=== PATIENT | female | born 1940 | race African-American/Black ===

== ENCOUNTER 2023-11-11 11:52 | Emergency (ER) | payer OTHER, MEDICAID ==
[~2023-11-11] VITALS: Ht 152.4 cm; Wt 60.0 kg
[2023-11-11] MEDS: ALBUTEROL (0.083%) 2.5MG/3ML NEB HHN SCH (12:22)
[2023-11-11 12:23] VITALS: PULSE 100; RESP 20; O2SAT 99
[2023-11-11] MEDS: IPRATROPIUM BROMIDE (0.02%) 0.5MG/2.5ML NEB HHN STA (12:23)
[2023-11-11] MEDS: MAGNESIUM 2 G PREMIX 50 ML IV ONE (12:23)
[2023-11-11] MEDS: METHYLPREDNISOLONE SOD SUCC 125MG/2ML (ACT-O-VIAL) IV STA (12:23)
[2023-11-11 12:30] LABS: BG BASE EXCESS -5.7 mmol/L (-2.0-2.0); BG CARBOXYHEMOGLOBIN 0.9 % (0.5-1.5); BG DEOXYHEMOGLOBIN 1.4 % (0.0-5.0); BG HCO3 ACT 17.9 mmol/L (22.0-26.0); BG METHEMOGLOBIN 0.3 % (0.0-1.5); BG OXYGEN SATURATION 98.6 % (92.0-98.5); BG OXYHEMOGLOBIN 97.4 % (94.0-97.0); BG PCO2 29.9 mmHg (35.0-45.0); BG PH 7.396 (7.350-7.450); BG PO2 112.1 mmHg (75.0-100.0); BG SAMPLE SITE RIGHT RADIAL; BG TOTAL HEMOGLOBIN 12.7 g/dL (12.0-18.0)
[2023-11-11 12:39] LABS: HEMOGLOBIN. 9.9 g/dL (12.0-16.0); RED BLOOD CELL COUNT 2.94 mill/uL (4.2-5.4); WHITE BLOOD COUNT 5.6 x1000/uL (4.5-11.0)
[2023-11-11 12:40] LABS: DIFFERENTIAL COMMENT 0; EOSINOPHILS % 1.6 % (0.0-5.0); HEMATOCRIT. 30.8 % (36.0-48.0); MEAN CORPUSCULAR HEMOGLOBIN 33.8 pg (28.0-32.0); MEAN CORPUSCULAR HGB CONC 32.2 g/dL (31.0-37.0); MEAN PLATELET VOLUME 8.3 fl (7.4-10.4); MONOCYTES % 7.4 % (2.0-8.0); PLATELET 154 x1000/uL (130-400)
[2023-11-11 12:55] LABS: CALCIUM 7.7 mg/dL (8.7-10.4); CARBON DIOXIDE 17 mEq/L (21-32)
[2023-11-11 13:00] LABS: CREATININE 0.9 mg/dL (0.6-1.0); GLUCOSE 71 mg/dL (70-105); UREA NITROGEN BLOOD 7 mg/dL (9-23)
[2023-11-11 13:31] LABS: TROPONIN I HIGH SENSITIVITY 122 ng/L (3.0-34)
[2023-11-11 14:34] LABS: PROTHROMBIN TIME 10.7 sec (9.6-11.0)
[2023-11-11 14:52] LABS: TROPONIN I HIGH SENSITIVITY 114 ng/L (3.0-34)
[2023-11-11] MEDS ORDERED: CLONIDINE 0.1MG TABLET PO PRN (15:15)
[2023-11-11] MEDS ORDERED: ONDANSETRON HCL 4MG/2ML INJ IV PRN (15:15)
[2023-11-11] MEDS ORDERED: ACETAMINOPHEN 325MG TABLET PO PRN ×2 (15:15)
[2023-11-11] MEDS ORDERED: IPRATROPIUM/ALBUTEROL 0.5-3(2.5)MG/3ML NEB NEB PRN (15:15)
[2023-11-11] MEDS: FUROSEMIDE 40MG/4ML VIAL IV SCH (15:29)
[2023-11-11] MEDS: ENOXAPARIN 40MG/0.4ML SYR SUBCUT SCH (15:29)
[2023-11-11] MEDS: MAGNESIUM/ALUMINUM HYDROXIDE/SIMETHICONE 30ML UDC PO PRN (17:23)
[2023-11-11 18:21] LABS: HEMATOCRIT 38.7 % (36.0-48.0); HEMOGLOBIN 12.8 g/dL (12.0-16.0)
[2023-11-11 18:38] LABS: CREATINE KINASE MB FRACTION 9.7 ng/mL (0.5-3.6); CREATININE 1.4 mg/dL (0.6-1.0)
[2023-11-11 19:09] VITALS: BP 170/70; PULSE 103; RESP 16; TEMP 98.1
[2023-11-11] MEDS: IPRATROPIUM/ALBUTEROL 0.5-3(2.5)MG/3ML NEB NEB SCH (21:15)
[2023-11-12] MEDS ORDERED: ENOXAPARIN 60MG/0.6ML SYR SUBCUT SCH (06:00)
[2023-11-12 06:25] LABS: CHLORIDE 102 mEq/L (98-107); POTASSIUM 3.4 mEq/L (3.5-5.1); SODIUM 135 mEq/L (136-145)
[2023-11-12 06:26] LABS: CARBON DIOXIDE 26 mEq/L (21-32)
[2023-11-12 06:27] LABS: CALCIUM 8.9 mg/dL (8.7-10.4)
[2023-11-12 06:31] LABS: CREATININE 0.9 mg/dL (0.6-1.0); GLUCOSE 113 mg/dL (70-105)
[2023-11-12 06:32] LABS: UREA NITROGEN BLOOD 14 mg/dL (9-23)
[2023-11-12 06:34] LABS: CREATINE KINASE MB FRACTION 0.9 ng/mL (0.5-3.6); PHOSPHORUS 2.8 mg/dL (2.5-4.9)
== END 2023-11-11 19:16 | disposition short-term general hospital (02) ==
LOC: ER 12:30 → 5WST 14:46 → UNDOADMIN 14:46 → EDBEDREQTM 14:55 → EDBEDREQ 14:55 → ER 19:16
DX: J44.1 Chronic obstructive pulmonary disease with (acute) exacerbation (principal); I21.4 Non-ST elevation (NSTEMI) myocardial infarction; J96.91 Respiratory failure, unspecified with hypoxia; I11.0 Hypertensive heart disease with heart failure; I50.9 Heart failure, unspecified; Z20.822 Contact with and (suspected) exposure to COVID-19
CPT/HCPCS: 99291; 96365; 96375; 71045; 96361; 87426; 82550; 82553; 83880; 83735; 84100; 85025; 85610; 85730; 84484; 82805; 82375; 93005; 94644; 36600; 85014; 85018; 96372; 80048; 36415; J1650; J1940; J3475; J2919